=== PATIENT | male | born 1985 | race Caucasian/White ===

== ENCOUNTER 2022-08-25 08:53 | Day surgery (SDC) | payer MEDICARE, MEDICAID ==
[2022-08-22 10:43] VITALS: BMI 38.1
[2022-08-25 12:25] LABS: #Basophils 0.1 thou/uL (0.0-0.2); #Eosinphils 0.5 thou/uL (0.0-0.7); #Lymphocytes 2.7 thou/uL (1.20-3.40); #Monocytes 0.5 thou/uL (0.11-0.59); #Neutrophils 3.2 thou/uL (1.40-6.50); %Basophils 1.2 % (0.0-1.0); %Eosinophils 7.1 % (0.0-10.0); %Lymphocytes 38.3 % (21.0-51.0); %Monocytes 7.3 % (0.0-10.0); %Neutrophils 46.2 % (42.0-75.0); Hemoglobin 15.3 g/dL (14.0-18.0); Mean Corpuscular HGB CONC 32.8 g/dL (32.0-36.0); Mean Corpuscular Hemoglobin 31.2 pg (27.0-31.0); Mean Corpuscular Volume 95.3 fl (78.0-98.0); Mean Platelet Volume 7.3 fL (7.4-10.4); Platelet Count 256 10x3/uL (130-400); RBC Distribution Width 11.3 % (11.5-14.5); Red Blood Cell (RBC) Count 4.91 mill/uL (4.70-6.10)
[2022-08-25] MEDS ORDERED: Midazolam HCl 2 mg/2 ml Vial ONE (13:26)
[2022-08-25] MEDS ORDERED: Acetaminophen/Codeine 30-300mg Tablet ONE (13:39)
[2022-08-25] MEDS ORDERED: Sodium Chloride 0.9% 100 ML ONE (13:45)
[2022-08-25] MEDS ORDERED: CEFAZOLIN 2 GM VIAL ONE (13:45)
[2022-08-25 13:50] LABS: Chloride 104 mmol/L (98-107); Potassium 3.9 mmol/L (3.5-5.1); Sodium 136 mmol/L (136-145)
[2022-08-25 13:51] LABS: Calcium 9.4 mg/dL (7.8-10.44); Glucose 84 mg/dL (70-105)
[2022-08-25 13:53] LABS: Anion Gap 9 mmol/L (10-20); Carbon Dioxide 27 mmol/L (22-29)
[2022-08-25 13:55] LABS: BUN (Urea Nitrogen) 7 mg/dL (8.9-20.6); Calc. Creatinine Clearance 213 mL/min (70-130); Estimated GFR 116
[2022-08-25] MEDS ORDERED: Morphine 10 MG/ML VIAL ONE (14:06)
[2022-08-25] MEDS ORDERED: Ondansetron PF 4 MG/2 ML Vial ONE (14:08)
[2022-08-25] MEDS ORDERED: Lidocaine 1% PF 5 ML VIAL ONE (14:08)
[2022-08-25] MEDS ORDERED: Rocuronium Bromide 10 MG/ML (10ML VIAL) ONE (14:08)
[2022-08-25] MEDS ORDERED: Dexamethasone 20 MG/5 ML VIAL ONE (14:08)
[2022-08-25] MEDS ORDERED: PROPOFOL 200 MG/20 ML VIAL ONE (14:08)
[2022-08-25] MEDS ORDERED: SUGAMMADEX SODIUM 200 MG/2 ML VIAL ONE (14:59)
[2022-08-25] MEDS ORDERED: Fentanyl 100 MCG/2 ML VIAL ONE (15:21)
[2022-08-25] MEDS ORDERED: Tamsulosin HCl 0.4 MG CAP ONE (15:30)
[2022-08-25] MEDS ORDERED: HYDROcodone/Acetaminophen 10/325 mg Tablet ONE (16:17)
== END 2022-08-25 17:14 | disposition home or self-care (01) ==
LOC: SDC 08:53
PROVIDERS: ATTEND Neurological Surgery
PROC: 0RG20A0 Fusion of 2 or more Cervical Vertebral Joints with Interbody Fusion Device, Anterior Approach, Anterior Column, Open Approach (ICD-10-PCS; principal; 2022-08-25)
PROC: 0RG2070 Fusion of 2 or more Cervical Vertebral Joints with Autologous Tissue Substitute, Anterior Approach, Anterior Column, Open Approach (ICD-10-PCS; 2022-08-25)
DX: M50.122 Cervical disc disorder at C5-C6 level with radiculopathy (principal); E66.9 Obesity, unspecified; Z68.38 Body mass index [BMI] 38.0-38.9, adult; Z87.891 Personal history of nicotine dependence; Z79.899 Other long term (current) drug therapy; Z91.018 Allergy to other foods
CPT/HCPCS: 80048; 85025; 93005; 93010; C1713; J1100; J2250; J2270; J2405; J2704; J3010; J3490